=== PATIENT | male | born 1975 | race Caucasian/White ===

== ENCOUNTER → 2018-03-17 | Emergency (ER) | payer SELFPAY ==
[~2018-03-17] VITALS: Ht 180.3 cm; Wt 69.9 kg
== END | disposition left against medical advice (07) ==
LOC: ER 01:18
DX: G47.00 Insomnia, unspecified (principal)

== ENCOUNTER 2019-01-04 10:36 | Emergency (ER) | payer SELFPAY ==
[~2019-01-04] VITALS: Ht 180.3 cm; Wt 69.9 kg
== END 2019-01-04 11:10 | disposition short-term general hospital (02) ==
LOC: ER 10:36
DX: R21 Rash and other nonspecific skin eruption (principal)